=== PATIENT | female | born 1990 | race Caucasian/White ===

== ENCOUNTER 2020-01-28 01:55 | Emergency (ER) | payer MEDICAID ==
[~2020-01-28] VITALS: Ht 170.2 cm; Wt 52.2 kg
[2020-01-28 02:00] VITALS: BP 111/76
[2020-01-28] MEDS ORDERED: BACITRACIN OINT 500 UNITS/GM PKT TP ONE (03:00)
== END 2020-01-28 03:15 | disposition home or self-care (01) ==
LOC: MED 01:55
DX: S90.822A Blister (nonthermal), left foot, initial encounter (principal); Z59.0 Homelessness; X58.XXXA Exposure to other specified factors, initial encounter; Y93.89 Activity, other specified; Y92.89 Other specified places as the place of occurrence of the external cause; Y99.8 Other external cause status
CPT/HCPCS: 99282

== ENCOUNTER 2020-11-25 03:43 | Emergency (ER) | payer MEDICAID ==
[~2020-11-25] VITALS: Ht 167.6 cm; Wt 66.7 kg
[2020-11-25 03:50] VITALS: BP 114/90
--- NOTE | 2020-11-25 03:50 | NUR ---
TO BED AMBULATORY
[2020-11-25] MEDS ORDERED: ONDANSETRON 4 MG ODT PO ONE (03:55)
[2020-11-25 04:39] VITALS: BP 121/84
--- NOTE | 2020-11-25 04:43 | NUR ---
Dr. Moreno with pt for MSE
[2020-11-25] MEDS ORDERED: NITR100C7 PO (05:28)
[2020-11-25] MEDS ORDERED: CALC500C17 PO (05:28)
--- NOTE | 2020-11-25 06:27 | NUR ---
d/c with VSS. d/c education given. opportunity to ask questions given and answered. rx of tums and macrobid given.
== END 2020-11-25 06:27 | disposition home or self-care (01) ==
LOC: MED 03:43
DX: O23.42 Unspecified infection of urinary tract in pregnancy, second trimester (principal); Z3A.28 28 weeks gestation of pregnancy
CPT/HCPCS: 81002; 81025; 99283; Q0162